=== PATIENT | male | born 1965 | race Caucasian/White ===

== ENCOUNTER 2020-05-30 08:25 | Outpatient (REF) | payer OTHER, SELFPAY | END 2020-05-30 08:26 | disposition home or self-care (01) | LOC: HO.SCI 08:25 | DX: Z13.89 Encounter for screening for other disorder (principal) ==

== ENCOUNTER 2020-06-05 12:58 | Outpatient (REF) | payer OTHER, SELFPAY ==
--- NOTE | ~2020-06-05 | MR_ITS ---
EXAMINATION: MR CERVICAL SPINE WITHOUT CONTRAST CLINICAL INFORMATION: Cervical pain. COMPARISON: There are no prior studies available for comparison. TECHNIQUE: MRI of the cervical spine was obtained using routine sequences without contrast. FINDINGS: VERTEBRAL BODIES AND PARASPINAL SOFT TISSUES: There are mild retrolistheses of C4 on C5 and C5 on C6. There is a mild anterolisthesis of T2 on T3. There is narrowing of intervertebral disc height at multiple levels between C3-C4 and C6-C7 with degenerative endplate contour changes. Mild edematous endplate signal changes are seen posteriorly at C4-C5 and C5-C6. There are also fatty endplate signal changes at C3-C4, C4-C5 and C5-C6. Vertebral body heights are maintained and no compression fractures. There are a few areas of increased T1 and T2 signal in some vertebrae consistent with focal fat or hemangiomata. Overall, marrow signal is relatively homogenous. The paravertebral structures are unremarkable. CERVICOMEDULLARY JUNCTION AND VISUALIZED POSTERIOR FOSSA: The craniocervical and posterior fossa structures are normal. There is a partially empty sella. Accounting for artifact, spinal cord signal appears normal. SPINAL LEVELS: C2-C3: There is mild left facet arthropathy. Posterior disc contour is normal. There is no spinal cord compression or central stenosis. There is no significant foraminal narrowing. C3-C4: There is mild bilateral facet arthropathy. Posterior disc osteophyte complex which effaces CSF ventral to the spinal cord with minimal distortion of the cord. There is mild central stenosis. There are uncovertebral osteophytes, and there is moderate to severe bilateral foraminal narrowing. C4-C5: There is mild bilateral facet arthropathy. There is a prominent posterior disc osteophyte complex which effaces CSF around the spinal cord with minimal flattening of the cord. There is moderate central stenosis. There are uncovertebral osteophytes bilaterally and there is severe bilateral foraminal narrowing. C5-C6: There is mild bilateral facet arthropathy. There are left and right posterior disc protrusions which distort the ventral thecal sac and flatten the spinal cord bilaterally. There is moderate central stenosis. There are uncovertebral osteophytes, and there is severe right and moderate to severe left foraminal narrowing. C6-C7: There is mild bilateral facet arthropathy. There is a broad-based posterior disc protrusion which effaces CSF ventral to the spinal cord without definite spinal cord compression. There is mild central stenosis. There are uncovertebral osteophytes bilaterally and there is moderate to severe bilateral foraminal narrowing. C7-T1: There is mild bilateral facet arthropathy. There is a left-sided disc osteophyte complex which effaces CSF ventral to the spinal cord, but there is no spinal cord compression or central stenosis. There are are left greater than right uncovertebral osteophytes. There is severe left and moderate to severe right foraminal narrowing. T2-T3: There is a posterior disc protrusion, without significant mass effect on the spinal cord. There are uncovertebral osteophytes bilaterally, and there is mild bilateral foraminal narrowing. MR/MR cervical spine wo con IMPRESSION: 1. At C4-C5 there is a prominent posterior disc osteophyte complex with flattening of the cord and there is moderate central stenosis. There are uncovertebral osteophytes bilaterally and there is severe bilateral foraminal narrowing. 2. At C3-C4 there is facet arthropathy and there is a posterior disc osteophyte complex. There is mild central stenosis. There is moderate to severe bilateral foraminal narrowing. 3. At C5-C6 there are posterior disc protrusions with flattening of the cord and there is moderate central stenosis. There is severe right and moderate to severe left foraminal narrowing. 4. At C6-C7 there is a broad-based posterior disc protrusion with mild central stenosis. There is moderate to severe bilateral foraminal narrowing. 5. At C7-T1 there is a left-sided disc osteophyte complex, without spinal cord compression or central stenosis. There is severe left and moderate to severe right foraminal narrowing.
== END 2020-06-05 12:59 | disposition home or self-care (01) ==
LOC: HO.MRI 12:58
PROVIDERS: Visit Provider Neurological Surgery
DX: M54.12 Radiculopathy, cervical region (principal)
CPT/HCPCS: 72141